=== PATIENT | female | born 1965 | race Caucasian/White ===

== ENCOUNTER 2017-12-26 11:36 | Day surgery (SDC) | payer BC | END 2017-12-26 15:24 | disposition home or self-care (01) | LOC: GIL 11:36 | DX: K29.50 Unspecified chronic gastritis without bleeding (principal); K21.0 Gastro-esophageal reflux disease with esophagitis; K44.9 Diaphragmatic hernia without obstruction or gangrene; I10 Essential (primary) hypertension | CPT/HCPCS: 43239; 88305; 88312 ==